=== PATIENT | female | born 1930 | race Caucasian/White ===

== ENCOUNTER 2017-06-04 08:55 | Outpatient (CLI) | payer MEDICARE ==
[2017-06-04] MEDS ORDERED: Sodium Chloride 0.9% 15 ML NEB ONE (09:00)
[2017-06-04] MEDS ORDERED: Lidocaine 2% Jelly 5 ML TUBE ONE (09:00)
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
== END 2017-06-04 08:56 | disposition home or self-care (01) ==
LOC: WCC 08:55
PROVIDERS: ATTEND Family Medicine
DX: I87.312 Chronic venous hypertension (idiopathic) with ulcer of left lower extremity (principal); L97.929 Non-pressure chronic ulcer of unspecified part of left lower leg with unspecified severity; I11.0 Hypertensive heart disease with heart failure; I50.9 Heart failure, unspecified
CPT/HCPCS: 11042; 97139; G0463; 99203; A4218

== ENCOUNTER 2017-06-11 09:26 | Outpatient (CLI) | payer MEDICARE ==
--- NOTE | 2017-06-11 10:53 | PRG ---
DATE OF SERVICE: 06/11/2017 HISTORY: Ms. Stephanie Diaz is a very pleasant 87-year-old accompanied by her son-in-law who p resents to the Wound Center for evaluation of an ulceration of the left medial malleolus. The patien t and her son-in-law previously stated that the ulceration had been present for approximately 3 month s when Ms. Diaz initially presented to the Wound Center. The patient had been receiving dressin g changes from her son-in-law of Danni on a daily basis for the 3 weeks to 1 month prior to being seen in the Wound Center. Also, prior to being seen in the Wound Center the wound was associated wi th a significant degree of pain for which the patient took Tylenol 3 times per day. The patient was referred to the Wound Center by Dr. Ordoñez. After being seen in the Wound Center, Promogran, Silver mian, Webril, and the 3M Coban 2 layer compression system were applied to the ulceration. The patient was able to tolerate the application of the 3M Coban 2 layer compression system to her left foot and lower leg. PHYSICAL EXAMINATION: VITAL SIGNS: Temperature 98.2, pulse 59, respirations 18, blood pressure 179/90. EXTREMITIES: An ulceration of the left medial malleolus is present which measures approximately 1.3 x 1.2 cm. The dimensions of the wound at the time of the patient's visit on 06/04/2017 were approxim ately 1.4 x 1.4 cm. Granulation tissue is present within the wound margins. No purulent drainage is associated with the wound. No erythema of the skin surrounding the wound is present. No maceration of the skin of the periwound is noted. A dorsalis pedis pulse or posterior tibial pulse is not palp able on the left on exam today. Both pulses are, however, audible by Doppler. No significant edema of the left foot is present on today's exam. ASSESSMENT AND PLAN: 1. Chronic venous hypertension with ulcer. Promogran, Silverlon, Webril, and the 3M Coban 2-layer c ompression system will be applied to the ulceration today without tension. I will see Ms. Diaz again in 1 week. 2. Hypertension. 3. Congestive heart failure.
== END 2017-06-11 09:27 | disposition home or self-care (01) ==
LOC: WCC 09:26
PROVIDERS: ATTEND Family Medicine
DX: I87.312 Chronic venous hypertension (idiopathic) with ulcer of left lower extremity (principal); L97.329 Non-pressure chronic ulcer of left ankle with unspecified severity; I11.0 Hypertensive heart disease with heart failure; I50.9 Heart failure, unspecified
CPT/HCPCS: 97602

== ENCOUNTER 2017-06-18 08:32 | Outpatient (CLI) | payer MEDICARE ==
--- NOTE | 2017-06-18 09:23 | PRG ---
DATE OF SERVICE: 06/18/2017 HISTORY: Ms. Stephanie Diaz is a very pleasant 87-year-old accompanied by her son-in-law who p resents to the Wound Center for evaluation of an ulceration of the left medial malleolus. The patien t and her son-in-law previously stated that the ulceration had been present for approximately 3 month s when Ms. Diaz initially presented to the Wound Center. The patient had been receiving dressin g changes from her son-in-law of Danni on a daily basis for the weeks to 1 month prior to being s een in the Wound Center. Also, prior to being seen in the Wound Center, the wound was associated wit h a significant degree of pain for which the patient took Tylenol 3 times per day. The patient was r eferred to the Wound Center by Dr. Ordoñez. After being seen in the Wound Center, Promogran, Silverl on, Webril, and the 3m Coban 2-layer compression system was applied to the ulceration. The patient h as been receiving the preceding dressing changes on a weekly basis here in the Wound Center. PHYSICAL EXAMINATION: VITAL SIGNS: Temperature 98.1, pulse 54, respirations 16, blood pressure 180/79. EXTREMITIES: The ulceration of the left medial malleolus measures approximately 1.4 x 1.3 cm. The d imensions of the wound at the time of the patient's visit on 06/11/2017 were approximately 1.3 x 1.2 cm. Granulation tissue is present within the wound margins. No purulent drainage is associated with the wound. No erythema of the skin surrounding the wound is present. No maceration of the skin of the periwound is noted. A posterior tibial pulse is palpable on exam today. No significant edema of the left foot is present on exam today. ASSESSMENT AND PLAN: 1. Chronic venous hypertension with ulcer. Promogran, Silverlon, Webril, and the 3m Coban 2-layer c ompression system will be applied to the ulceration today. I will see Ms. Diaz again in one wee k. 2. Hypertension. 3. Congestive heart failure.
[2017-06-18] MEDS ORDERED: Lidocaine 2% Jelly 5 ML TUBE ONE (16:02)
[2017-06-18] MEDS ORDERED: Sodium Chloride 0.9% 15 ML NEB ONE (16:03)
== END 2017-06-18 08:33 | disposition home or self-care (01) ==
LOC: WCC 08:32
PROVIDERS: ATTEND Family Medicine
DX: I87.312 Chronic venous hypertension (idiopathic) with ulcer of left lower extremity (principal); I11.0 Hypertensive heart disease with heart failure; I50.9 Heart failure, unspecified
CPT/HCPCS: A4218

== ENCOUNTER 2017-06-19 19:52 | Emergency (ER) | payer MEDICARE ==
--- NOTE | 2017-06-19 21:01 | RAD ---
CHEST ONE VIEW 06/19/17 HISTORY: Tachypnea. Elevated blood pressure. COMPARISON: None. FINDINGS: There is elevation of the right hemidiaphragm likely chronic. Moderate to severe dextroscoliosis thor acic spine. Likely calcified granuloma in the left mid lung. No pneumothorax. IMPRESSION: Chandaley chronic elevation of the right hemidiaphragm. POS: [facility]
[2017-06-19 21:03] LABS: #Eosinphils 0.1 thou/uL (0.0-0.7); #Lymphocytes 0.4 thou/uL (1.20-3.40); #Monocytes 0.4 thou/uL (0.11-0.59); #Neutrophils 7.3 thou/uL (1.40-6.50); %Basophils 0.2 % (0.0-1.0); %Eosinophils 0.7 % (0.0-10.0); %Lymphocytes 5.3 % (21.0-51.0); %Neutrophils 88.9 % (42.0-75.0); Hemoglobin 12.2 g/dL (12.0-16.0); Mean Corpuscular HGB CONC 32.4 g/dL (32.0-36.0); Mean Corpuscular Hemoglobin 32.4 pg (27.0-31.0); Mean Corpuscular Volume 99.9 fl (81.0-99.0); Mean Platelet Volume 7.3 fL (7.4-10.4); Platelet Count 212 thou/uL (130-400); Red Blood Cell (RBC) Count 3.77 mill/uL (4.20-5.40); White Blood Cell (WBC) Count 8.2 thou/uL (4.8-10.8)
[2017-06-19 21:21] LABS: ALT (SGPT) 49 U/L (8-55); AST (SGOT) 82 U/L (5-34); Alkaline Phosphatase 84 U/L (40-150); BUN (Urea Nitrogen) 31 mg/dL (9.8-20.1); Bilirubin, Total 0.7 mg/dL (0.2-1.2); CK (CPK) 121 U/L (29-168); Calc. Creatinine Clearance 0 mL/min (70-130); Estimated GFR-MDRD 49; Globulin 2.9 g/dL (2.4-3.5); Glucose 154 mg/dL (83-110); Protein, Total 6.9 g/dL (6.0-8.3)
[2017-06-19 21:29] LABS: Anion Gap 11 mmol/L (10-20); Carbon Dioxide 37 mmol/L (23-31); Chloride 90 mmol/L (98-107); Potassium 4.8 mmol/L (3.5-5.1); Sodium 133 mmol/L (136-145)
[2017-06-19 21:30] LABS: CKMB 4.5 ng/mL (0-6.6); Troponin I 0.074 ng/mL (< 0.028)
== END 2017-06-19 23:33 | disposition home or self-care (01) ==
LOC: ERS 19:52
DX: R06.00 Dyspnea, unspecified (principal); I11.0 Hypertensive heart disease with heart failure; I50.9 Heart failure, unspecified; Z79.899 Other long term (current) drug therapy
CPT/HCPCS: 36415; 71045; 80053; 82550; 82553; 83880; 84484; 85025; 93005

== ENCOUNTER 2017-06-27 08:19 | Outpatient (CLI) | payer MEDICARE ==
--- NOTE | 2017-06-27 09:22 | PRG ---
DATE OF SERVICE: 06/27/2017 HISTORY: Ms. Stephanie Diaz is a very pleasant 87-year-old accompanied by her son-in-law who p resents to the Wound Center for evaluation of an ulceration of the left medial malleolus. The patien t and her son-in-law previously stated that the ulceration had been present for approximately 3 month s when Ms. Diaz initially presented to the Wound Center. The patient has been receiving dressin g changes from her son-in-law of Danni on a daily basis for 3 weeks to 1 month prior to being see n in the Wound Center. Also, prior to being seen in the Wound Center, the wound was associated with a significant degree of pain for which the patient took Tylenol 3 times per day. The patient was re ferred to the Wound Center by Dr. Ordoñez. After being seen in the Wound Center, Promogran, Silverlo n, Webril, and the 3M Coban 2 layer compression system were applied to the ulceration. The patient h as been receiving the preceding dressing changes on a weekly basis here in the Wound Center. PHYSICAL EXAMINATION: VITAL SIGNS: Temperature 97.8, pulse 57, respirations 18, blood pressure 120/79. EXTREMITIES: The ulceration of the left medial malleolus measures approximately 1.2 x 1.2 cm. The d imensions of the wound at the time of the patient's last visit were approximately 1.4 x 1.3 cm. Gran ulation tissue is present within the wound margins. No purulent drainage is associated with the woun d. No erythema of the skin surrounding the wound is present. No maceration of the skin of the periw ound is noted. A posterior tibial pulse is palpable on the left. No significant edema of the left f oot is present on exam today. Necrotic and nonviable tissue present within the wound margins was gaye rided with an excisional full-thickness debridement with the use of a curet. Undermining and desicca ginette tissue at the periphery of the wound were eliminated with the use of scissors. ASSESSMENT AND PLAN: 1. Chronic venous hypertension with ulcer. Xeroform gauze, Webril, and 3M Coban 2-layer compression system will be applied to the ulceration today. I will see Ms. Diaz again in 1 week. At this time, consideration will be given to treatment with MatriStem sheet. 2. Hypertension. 3. Congestive heart failure.
== END 2017-06-27 08:20 | disposition home or self-care (01) ==
LOC: WCC 08:19
PROVIDERS: ATTEND Family Medicine
DX: I87.312 Chronic venous hypertension (idiopathic) with ulcer of left lower extremity (principal); L97.329 Non-pressure chronic ulcer of left ankle with unspecified severity; I11.0 Hypertensive heart disease with heart failure; I50.9 Heart failure, unspecified
CPT/HCPCS: 11042

== ENCOUNTER 2017-07-04 08:37 | Outpatient (CLI) | payer MEDICARE ==
[2017-07-04] MEDS ORDERED: Lidocaine 2% Jelly 5 ML TUBE ONE (10:00)
[2017-07-04] MEDS ORDERED: Sodium Chloride 0.9% 15 ML NEB ONE (10:00)
--- NOTE | 2017-07-04 10:06 | PRG ---
DATE OF SERVICE: 07/04/2017 HISTORY: Ms. Stephanie Diaz is a very pleasant 87-year-old accompanied by her son-in-law tila stack presents to the Wound Center for evaluation of an ulceration of the left medial malleolus. The pa amber and her son-in-law previously stated that the ulceration had been present for approximately 3 m onths when Ms. Diaz initially presented to the Wound Center. The patient had been receiving woodrow ssing changes from her son-in-law of Danni on a daily basis for 3 weeks to 1 month prior to being seen in the Wound Center. Also, prior to being seen in the Wound Center, the wound was associated w ith a significant degree of pain for which the patient took Tylenol 3 times per day. The patient was referred to the Wound Center by Dr. Ordoñez. After being seen in the Wound Center, Promogran, Silve rlon, Webril, and the 3M Coban layer compression systems were applied to the ulceration. The patient has been receiving the preceding dressing changes on a weekly basis here in the Wound Center. PHYSICAL EXAMINATION: VITAL SIGNS: Temperature 97.9, pulse 57, respirations 18, blood pressure 103/59. EXTREMITIES: The ulceration of the left medial malleolus measures approximately 1.1 x 1.0 cm. The d imensions of the wound at the time of the patient's last visit were approximately 1.2 x 1.2 cm. Gran ulation tissue is present within the wound margins. No purulent drainage is associated with the woun d. No erythema of the skin surrounding the wound is present. No maceration of the skin of the periw ound is noted. No significant edema of the left foot is present on exam today. MatriStem sheet 3 x 3.5 cm was applied to the wound bed followed by Adaptic touch, a bolster of saline-moistened gauze, d ry gauze, Webril, and 3M Coban 2 layer compression system. ASSESSMENT AND PLAN: 1. Chronic venous hypertension with ulcer. MatriStem sheet 3 x 3.5 cm was applied to the ulceration today. I will see Ms. Diaz again in one week. At this time, consideration will be given to an other placement of MatriStem. 2. Hypertension. 3. Congestive heart failure.
== END 2017-07-04 08:38 | disposition home or self-care (01) ==
LOC: WCC 08:37
PROVIDERS: ATTEND Family Medicine
DX: I87.312 Chronic venous hypertension (idiopathic) with ulcer of left lower extremity (principal); L97.329 Non-pressure chronic ulcer of left ankle with unspecified severity; I11.0 Hypertensive heart disease with heart failure; I50.9 Heart failure, unspecified
CPT/HCPCS: A4218; C5271; Q4166-KX-JC

== ENCOUNTER 2017-07-12 08:10 | Outpatient (CLI) | payer MEDICARE ==
--- NOTE | 2017-07-12 09:18 | PRG ---
DATE OF SERVICE: 07/12/2017 HISTORY: Ms. Stephanie Diaz is a very pleasant 87-year-old accompanied by her son-in-law who p resents to the Wound Center for evaluation of an ulceration of the left medial malleolus. The patien gamaliel and her son-in-law previously stated that the ulceration had been present for approximately 3 month s when Ms. Diaz initially presented to the Wound Center. The patient had been receiving dressin g changes from her son-in-law of Danni on a daily basis for 3 weeks to 1 month prior to being see n in the Wound Center, Also, prior to being seen in the Wound Center, the wound was associated with a significant degree of pain for which the patient took Tylenol 3 times per day. The patient was re ferred to the Wound Center by Dr. Ordoñez. After being seen in the Wound Center, Promogran, Silverlo n, Webril, and the 3M Coban 2-layer compression systems were applied to the ulceration. The patient received the preceding dressing changes on a weekly basis here in the Wound Center. At the time of t he patient's last visit, MatriStem sheet was applied to the wound bed of the left medial malleolar ul ceration. PHYSICAL EXAMINATION: VITAL SIGNS: Temperature 97.7, pulse 55, respirations 17, blood pressure 136/73. EXTREMITIES: The ulceration of the left medial malleolus measures approximately 1.2 x 0.9 cm. The d imensions of the wound at the time of the patient's last visit were approximately 1.1 x 1.0 cm. Gran ulation tissue is present within the wound margins. No purulent drainage is associated with the woun d. No erythema of the skin surrounding the wound is present. No maceration of the skin of the periw ound is noted. No significant edema of the left foot is present on exam today. MatriStem sheet 3 x 3.5 cm was applied to the wound bed followed by Adaptic touch, a bolster of saline-moistened gauze, d ry gauze, Webril, and 3M Coban 2 layer compression system. ASSESSMENT AND PLAN: 1. Chronic venous hypertension with ulcer. MatriStem sheet 3 x 3.5 cm was applied to the ulceration today. I will see Ms. Diaz again in 1 week. At this time, consideration will be given to anot her placement of MatriStem. 2. Hypertension. 3. Congestive heart failure.
== END 2017-07-12 08:11 | disposition home or self-care (01) ==
LOC: WCC 08:10
PROVIDERS: ATTEND Family Medicine
DX: I87.312 Chronic venous hypertension (idiopathic) with ulcer of left lower extremity (principal); L97.329 Non-pressure chronic ulcer of left ankle with unspecified severity; I11.0 Hypertensive heart disease with heart failure; I50.9 Heart failure, unspecified
CPT/HCPCS: 97139; C5271; Q4166

== ENCOUNTER 2017-07-16 08:40 | Outpatient (CLI) | payer MEDICARE ==
[~2017-07-16 08:40] MED LIST: Lidocaine 2% Jelly 5 ML TUBE ONE; Sodium Chloride 0.9% 15 ML NEB ONE
--- NOTE | 2017-07-16 09:19 | PRG ---
DATE OF SERVICE: 07/16/2017 HISTORY: Ms. Stephanie Diaz is a very pleasant 87-year-old accompanied by her son-in-law who p resents to the Wound Center for evaluation of an ulceration of the left medial malleolus. The patien gamaliel and her son-in-law previously stated that the ulceration had been present for approximately 3 month s when Ms. Diaz initially presented to the Wound Center. The patient has been receiving dressin g changes from her son-in-law of Danni on a daily basis for 3 weeks to 1 month prior to being see n in the Wound Center. Also prior to being seen in the Wound Center, the wound was associated with a significant degree of pain for which the patient took Tylenol 3 times per day. The patient was ref erred to the Wound Center by Dr. Ordoñez. After being seen in the Wound Center, Promogran, Silverlon , Webril, and the 3M Coban layer compression system were applied to the ulceration. The patient rece ived the preceding dressing changes on a weekly basis here in the Wound Center. Presently, the patie dagoberto is receiving treatment with MatriStem sheet. PHYSICAL EXAMINATION: VITAL SIGNS: Temperature 97.7, pulse 58, respirations 20, blood pressure 178/80. EXTREMITIES: The ulceration of the left medial malleolus measures approximately 1.0 x 0.9 cm. The d imensions of the wound at the time of the patient's visit on 07/12/2017 were approximately 1.2 x 0.9 cm. Granulation tissue is present within the wound margins. No purulent drainage is associated with the wound. No erythema of the skin surrounding the wound is present. No maceration of the skin of the periwound is noted. A posterior tibial pulse is easily palpable on the left. No significant sabine ma of the left foot is present on exam today. ASSESSMENT AND PLAN: 1. Chronic venous hypertension with ulcer. The patient is presently receiving treatment with MatriS tem sheet, Adaptic touch, Webril, and 3M Coban 2 layer compression system were applied to the ulcerat ion today. I will see Ms. Diaz again in 1 week. At this time, consideration will be given to a nother placement of MatriStem. 2. Hypertension. 3. Congestive heart failure.
== END 2017-07-16 08:41 | disposition home or self-care (01) ==
LOC: WCC 08:40
PROVIDERS: ATTEND Family Medicine
DX: I87.312 Chronic venous hypertension (idiopathic) with ulcer of left lower extremity (principal); L97.329 Non-pressure chronic ulcer of left ankle with unspecified severity; I10 Essential (primary) hypertension
CPT/HCPCS: 29581; A4218

== ENCOUNTER 2017-07-20 15:53 | Emergency (ER) | payer MEDICARE ==
--- NOTE | 2017-07-20 16:52 | RAD ---
RIGHT HIP TWO VIEWS: 07/20/17 HISTORY: Fall. Right hip injury. FINDINGS: Mild osteoarthritic changes. Osseous structures are demineralized. Hip is held in internal rotation o n both views. No displaced fractures are apparent. IMPRESSION: 1. No displaced fractures are apparent on limited exam. If there is ongoing pain, please conside r CT pelvis. 2. Osteoporosis. Osteoarthritis. POS: [facility]
[2017-07-20 16:58] LABS: #Lymphocytes 0.5 thou/uL (1.20-3.40); #Monocytes 2.3 thou/uL (0.11-0.59); #Neutrophils 14.6 thou/uL (1.40-6.50); %Basophils 0.1 % (0.0-1.0); %Eosinophils 0.1 % (0.0-10.0); %Lymphocytes 2.6 % (21.0-51.0); %Monocytes 13.1 % (0.0-10.0); %Neutrophils 84.1 % (42.0-75.0); Hemoglobin 13.2 g/dL (12.0-16.0); Mean Corpuscular HGB CONC 32.4 g/dL (32.0-36.0); Mean Corpuscular Hemoglobin 32.8 pg (27.0-31.0); Mean Platelet Volume 7.4 fL (7.4-10.4); Platelet Count 202 thou/uL (130-400); RBC Distribution Width 11.9 % (11.5-14.5); Red Blood Cell (RBC) Count 4.02 mill/uL (4.20-5.40); White Blood Cell (WBC) Count 17.3 thou/uL (4.8-10.8)
--- NOTE | 2017-07-20 17:15 | RAD ---
AP VIEW OF THE CHEST: 07/20/17 INDICATION: Fall with shortness of breath. COMPARISON: Prior exam dated 06/19/17. FINDINGS: There is worsening moderate to severe right sided pleural effusion. There is a small left pleural eff usion. There is cardiomegaly. Pulmonary vascular congestion is present. No pneumothorax is evident. T here is prominent thoracolumbar scoliosis. IMPRESSION: Cardiomegaly with pulmonary vascular congestion and worsening bilateral pleural effusions, right grea ter than left, suspicious for component of CHF or volume overload. The pleural effusion on the right is moderate to severe in size. There is a component of an elevated right hemidiaphragm. The right bet ter seen on the comparison exam. POS: [facility]
[2017-07-20 17:21] LABS: ALT (SGPT) 24 U/L (8-55); AST (SGOT) 37 U/L (5-34); Alkaline Phosphatase 72 U/L (40-150); Anion Gap 11 mmol/L (10-20); BUN (Urea Nitrogen) 22 mg/dL (9.8-20.1); Bilirubin, Total 1.8 mg/dL (0.2-1.2); CK (CPK) 431 U/L (29-168); Calc. Creatinine Clearance 0 mL/min (70-130); Carbon Dioxide 37 mmol/L (23-31); Chloride 95 mmol/L (98-107); Estimated GFR-MDRD 71; Globulin 2.9 g/dL (2.4-3.5); Glucose 130 mg/dL (83-110); Protein, Total 6.9 g/dL (6.0-8.3); Sodium 139 mmol/L (136-145)
[2017-07-20] MEDS ORDERED: hydrALAZINE 20 MG/ML VIAL ONE (17:28)
[2017-07-20 17:31] LABS: CKMB 16.7 ng/mL (0-6.6)
[2017-07-20 18:30] LABS: pH, Arterial 6.97 (7.35-7.45)
[2017-07-20 18:31] LABS: CO2 Tension 197.8 mmHg (35.0-45.0)
[2017-07-20 18:35] LABS: Actual Bicarbonate (HCO3a) 44.1 mEq/L (22-28); Base Excess (BEa) 6.1 mEq/L (-2.0 to +3.0); Hematocrit-ABG 46.3 % (36.0-47.0); Hemoglobin (Hb) 13.5 g/dL (12.0-16.0); O2 Tension (PaO2) 155.9 mmHg (> 60.0)
[2017-07-20 18:36] LABS: Analyzer IN Cardio ER; Calcium, Ionized 1.4 mmol/L (1.12-1.30); Puncture Site LBA
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
--- NOTE | 2017-07-20 19:28 | CT ---
CT OF CERVICAL SPINE 07/20/17 COMPARISON: None. HISTORY: Fall, trauma, pain. TECHNIQUE: Serial axial CT imaging at 2.5 mm intervals from skull base through lung apices without contrast. Cor onal and sagittal reformatted imaging obtained. FINDINGS: The bones are demineralized, limiting assessment for nondisplaced fracture. There is dextroscoliosis of the cervical spine, also limiting detailed assessment. There is moderate degenerative change at th e atlantoaxial interspace. There is prominent degenerative change at the C1-2 articulation on the lef t. The occipital condyles appear intact. No evidence for a dens fracture noted. No prevertebral soft tissue swelling seen. There is prominent facet hypertrophic change present on the left at C2-3, C3-4, and C4-5. There is no significant anterolisthesis or retrolisthesis. There is significant disc space narrowing and degenerative end plate change with anterior osteophyte formation at C4-5, C5-6, and C6-7. Imaged lung apices demonstrate incompletely imaged pleural fluid on the right extending into the righ t region of the right lung apex. Incidental note is made of a hypodense incompletely evaluated thyroi d nodule on the right measuring up to 1.4 cm. There is no evidence for fracture of the C1 ring. No acute fractures identified. IMPRESSION: Prominent degenerative change within the cervical spine with no displaced fracture or evidence of dis location. Additional incidental findings as described above. POS: [facility]
--- NOTE | 2017-07-20 19:34 | PDOC.FPRHP ---
- History PMHx: PSHx: FHx: Social: - Vital signs BP: [] HR: [] RR: [] Tmax: [] Pox: []% on [] Wt: [] FMR H&P: Results - Labs Result Diagrams: 07/20/17 16:49 07/20/17 16:49 Lab results: WBC 17.3 thou/uL (4.8-10.8) H 07/20/17 16:49 Hgb 13.2 g/dL (12.0-16.0) 07/20/17 16:49 Hct 40.7 % (36.0-47.0) 07/20/17 16:49 MCV 101.0 fl (81.0-99.0) H 07/20/17 16:49 Plt Count 202 thou/uL (130-400) 07/20/17 16:49 Neutrophils % 84.1 % (42.0-75.0) H 07/20/17 16:49 ABG pH 6.97 (7.35-7.45) L* 07/20/17 18:00 ABG pCO2 197.8 mmHg (35.0-45.0) H* 07/20/17 18:00 ABG pO2 155.9 mmHg (> 60.0) H 07/20/17 18:00 Sodium 139 mmol/L (136-145) 07/20/17 16:49 Potassium 4.0 mmol/L (3.5-5.1) 07/20/17 16:49 Chloride 95 mmol/L (98-107) L 07/20/17 16:49 Carbon Dioxide 37 mmol/L (23-31) H 07/20/17 16:49 BUN 22 mg/dL (9.8-20.1) H 07/20/17 16:49 Creatinine 0.77 mg/dL (0.6-1.1) 07/20/17 16:49 Glucose 130 mg/dL (83-110) H 07/20/17 16:49 Calcium 10.0 mg/dL (7.8-10.44) 07/20/17 16:49 Total Bilirubin 1.8 mg/dL (0.2-1.2) H 07/20/17 16:49 AST 37 U/L (5-34) H 07/20/17 16:49 ALT 24 U/L (8-55) 07/20/17 16:49 Alkaline Phosphatase 72 U/L (40-150) 07/20/17 16:49 Creatine Kinase 431 U/L (29-168) H 07/20/17 16:49 CK-MB (CK-2) 16.7 ng/mL (0-6.6) H* 07/20/17 16:49 B-Natriuretic Peptide 2579.5 pg/mL (0-100) H 07/20/17 16:43 Serum Total Protein 6.9 g/dL (6.0-8.3) 07/20/17 16:49 Albumin 4.0 g/dL (3.4-4.8) 07/20/17 16:49 FMR H&P: Upper Level - Plan Date/Time: 07/20/171932 I, [], have evaluated this patient and agree with findings/plan as outlined by environmental health and safety intern resident. Pertinent changes/additions are listed here.
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
== END 2017-07-20 20:42 | disposition expired ==
LOC: ERS 15:53
DX: T59.7X1A Toxic effect of carbon dioxide, accidental (unintentional), initial encounter (principal); I11.0 Hypertensive heart disease with heart failure; I50.9 Heart failure, unspecified; F03.90 Unspecified dementia, unspecified severity, without behavioral disturbance, psychotic disturbance, mood disturbance, and anxiety; Z79.899 Other long term (current) drug therapy; W10.9XXA Fall (on) (from) unspecified stairs and steps, initial encounter
CPT/HCPCS: 36415; 70450; 71045; 72125; 80053; 82553; 82805; 83880; 84484; 85025; 93005; 94760; 96374; J0360